=== PATIENT | female | born 1990 | race Caucasian/White ===

== ENCOUNTER 2017-11-12 17:12 | Emergency (ER) | payer SELFPAY ==
[~2017-11-12] VITALS: Ht 152.4 cm; Wt 70.0 kg
[2017-11-12 17:47] VITALS: TEMP 36.8; Ht 152.4 cm; Wt 70.0 kg
[2017-11-12] MEDS ORDERED: KETOROLAC TROMETHAMINE 30 MG/ML VIAL IV STA (18:54)
[2017-11-12] MEDS ORDERED: SODIUM CHLORIDE 0.9% 1000ML 1,000 ML IV STA (18:54)
[2017-11-12] MEDS ORDERED: ONDANSETRON INJ 2 MG/ML 2 ML VIAL IV STA (18:54)
[2017-11-12 19:30] LABS: BASO % 0.1 %; BASO ABS # 0.01 K/uL (0-0.2); EOS % 0.4 %; EOS ABS # 0.03 K/uL (0-0.5); HEMOGLOBIN 13.6 g/dL (12.0-16.0); IG# 0.02 K/uL (0.00-0.02); LYMPH ABS # 1.13 K/uL (1.2-3.4); MEAN CELL VOLUME 87.2 fL (80-100); MEAN CORPUSCULAR HEMOGLOBIN 30.4 pg (25-34); MEAN CORPUSCULAR HGB CONC 34.9 g/dl (32-36); MEAN PLATELET VOLUME 10.2 fL (7.4-10.4); MONO % 5.1 %; MONO ABS # 0.41 K/uL (0.11-0.59); NEUT % 80.2 %; NEUT ABS # 6.46 K/uL (1.4-6.5); PLATELET COUNT 224 K/uL (130-400); RED CELL DISTRIBUTION WIDTH CV 12.2 % (11.5-14.5); RED CELL DISTRIBUTION WIDTH SD 39.3 fL (36.4-46.3); WHITE BLOOD COUNT 8.06 K/uL (4.8-10.8)
[2017-11-12 19:48] LABS: ALBUMIN 3.7 gm/dl (3.4-5.0); CREATININE 0.6 mg/dl (0.60-1.20); POTASSIUM 3.9 mmol/L (3.5-5.1)
[2017-11-12 19:51] LABS: TOTAL PROTEIN 7.6 gm/dl (6.4-8.2)
--- NOTE | 2017-11-12 20:09 | EMERGENCY ROOM VISIT NOTE ---
History Report prepared by Darleneibnina: Nikki Frank Under the Supervision of: Dr. Indio Lopez M.D. First contact with patient: 18:48 Chief Complaint: VOMITING Stated Complaint: VOMITING, CAN'T EAT OR KEEP ANYTHING DOWN Nursing Triage Summary: vomiting for three days. unable to keep anything down. denies abdominal pain and had diarrhea for one day only History of Present Illness The patient is a 27 year old female who presents to the Emergency Room with complaints of constant vomiting starting 2 days ago. The patient states that she has not been able to keep anything that she eats or drinks down. She states that she has never had this issue before. The patient complains of mild abdominal cramping and an episode of diarrhea this morning. The patient denies any questionable food sources and any abdominal surgeries. She notes that she doesn't think that there is a chance that she is and states that her LNMP was a few weeks ago. Source of History: patient Onset: 2 days ago Position: other (global) Quality: other (vomiting) Timing: constant Associated Symptoms: + abdominal pain, + diarrhea Review of Systems See HPI for pertinent positives & negatives. A total of 10 systems reviewed and were otherwise negative. Past Medical & Surgical Medical Problems: (1) No pertinent past medical history Family History Patient reports no known family medical history. Social History Smoking Status: Current Every Day Smoker Alcohol Use: none Drug Use: none Marital Status: single Occupation Status: employed Current/Historical Medications Scheduled Doxylamine-Pyridoxine (Diclegis), 2 TAB PO HS Multivit (), 1 TAB PO DAILY Allergies Coded Allergies: No Known Allergies (Verified , NKA, 05/18/15) Physical Exam Vital Signs Date Time Temp Pulse Resp B/P (MAP) Pulse Ox O2 Delivery O2 Flow Rate FiO2 11/12/17 22:23 72 18 110/53 100 11/12/17 21:42 73 16 101/53 100 Room Air 11/12/17 21:42 72 18 101/53 98 Room Air 11/12/17 21:42 77 11/12/17 20:29 58 18 106/57 100 Room Air 11/12/17 19:11 64 18 104/61 100 Room Air 11/12/17 17:47 36.8 93 20 122/85 99 Room Air Physical Exam GENERAL: Awake, alert, well-appearing, in no acute distress HENT: Normocephalic, atraumatic. Oropharynx unremarkable. EYES: Normal conjunctiva. Sclera non-icteric. NECK: Supple. No nuchal rigidity. FROM. No JVD. RESPIRATORY: Clear to auscultation. CARDIAC: Regular rate, normal rhythm. Extremities warm and well perfused. Pulses equal. ABDOMEN: Soft, non-distended. No tenderness to palpation. No rebound or guarding. No masses. RECTAL: Deferred. MUSCULOSKELETAL: Chest examination reveals no tenderness. The back is symmetrical on inspection without obvious abnormality. There is no CVA tenderness to palpation. No joint edema. LOWER EXTREMITIES: Calves are equal size bilaterally and non-tender. No edema. No discoloration. NEURO: Normal sensorium. No sensory or motor deficits noted. SKIN: No rash or jaundice noted. Medical Decision & Procedures ER Provider Diagnostic Interpretation: Radiology results as stated below per my review and radiologist interpretation: <14 WKS SINGLE (transabdominal and endovaginal scanning CLINICAL HISTORY: , nausea and vomiting. COMPARISON STUDY: No previous studies for comparison. FINDINGS: A single alive intrauterine gestation is visualized. The crown-rump length measures 21 mm corresponding to an estimated postmenstrual age of 8 weeks and 5 days. Cardiac activity was visualized. A 3 mm yolk sac was delineated. The right ovary measured 20 x 14 x 24 mm. The left ovary measured 39 x 22 x 26 mm. There is a 26 mm heterogeneous focus within the left ovary, likely representing a corpus luteal cyst. IMPRESSION: Single alive intrauterine gestation. The estimated postmenstrual age is 8 weeks and 5 days Electronically signed by: Ramin Brannon M.D. 11/12/2017 9:57 PM Dictated Date/Time: 11/12/2017 9:55 PM Laboratory Results 11/12/17 19:10 Red Blood Count 4.47, Mean Corpuscular Volume 87.2, Mean Corpuscular Hemoglobin 30.4, Mean Corpuscular Hemoglobin Concent 34.9, Mean Platelet Volume 10.2, Neutrophils (%) (Auto) 80.2, Lymphocytes (%) (Auto) 14.0, Monocytes (%) (Auto) 5.1, Eosinophils (%) (Auto) 0.4, Basophils (%) (Auto) 0.1, Neutrophils # (Auto) 6.46, Lymphocytes # (Auto) 1.13, Monocytes # (Auto) 0.41, Eosinophils # (Auto) 0.03, Basophils # (Auto) 0.01 11/12/17 19:10 Test 11/12/17 19:10 11/12/17 19:56 White Blood Count 8.06 K/uL (4.8-10.8) Red Blood Count 4.47 M/uL (4.2-5.4) Hemoglobin 13.6 g/dL (12.0-16.0) Hematocrit 39.0 % (37-47) Mean Corpuscular Volume 87.2 fL (80-100) Mean Corpuscular Hemoglobin 30.4 pg (25-34) Mean Corpuscular Hemoglobin Concent 34.9 g/dl (32-36) Platelet Count 224 K/uL (130-400) Mean Platelet Volume 10.2 fL (7.4-10.4) Neutrophils (%) (Auto) 80.2 % Lymphocytes (%) (Auto) 14.0 % Monocytes (%) (Auto) 5.1 % Eosinophils (%) (Auto) 0.4 % Basophils (%) (Auto) 0.1 % Neutrophils # (Auto) 6.46 K/uL (1.4-6.5) Lymphocytes # (Auto) 1.13 K/uL (1.2-3.4) Monocytes # (Auto) 0.41 K/uL (0.11-0.59) Eosinophils # (Auto) 0.03 K/uL (0-0.5) Basophils # (Auto) 0.01 K/uL (0-0.2) RDW Standard Deviation 39.3 fL (36.4-46.3) RDW Coefficient of Variation 12.2 % (11.5-14.5) Immature Granulocyte % (Auto) 0.2 % Immature Granulocyte # (Auto) 0.02 K/uL (0.00-0.02) Anion Gap 5.0 mmol/L (3-11) Est Creatinine Clear Calc Drug Dose 123.0 ml/min Estimated GFR () 144.8 Estimated GFR (Non- 124.9 BUN/Creatinine Ratio 12.1 (10-20) Calcium Level 9.0 mg/dl (8.5-10.1) Total Bilirubin 0.3 mg/dl (0.2-1) Direct Bilirubin 0.1 mg/dl (0-0.2) Aspartate Amino Transf (AST/SGOT) 14 U/L (15-37) Alanine Aminotransferase (ALT/SGPT) 21 U/L (12-78) Alkaline Phosphatase 62 U/L (45-117) Total Protein 7.6 gm/dl (6.4-8.2) Albumin 3.7 gm/dl (3.4-5.0) Lipase 91 U/L (73-393) Human Chorionic Gonadotropin, Qual POS (NEG) Human Chorionic Gonadotropin, Quant 34208 mIU/mL Urine Color DK YELLOW Urine Appearance TURBID (CLEAR) Urine pH 5.0 (4.5-7.5) Urine Specific [place] 1.029 (1.000-1.030) Urine Protein 1+ (NEG) Urine Glucose (UA) NEG (NEG) Urine Ketones 2+ (NEG) Urine Occult Blood 1+ (NEG) Urine Nitrite POS (NEG) Urine Bilirubin NEG (NEG) Urine Urobilinogen NEG (NEG) Urine Leukocyte Esterase MODERATE (NEG) Urine WBC (Auto) >30 /hpf (0-5) Urine RBC (Auto) 5-10 /hpf (0-4) Urine Hyaline Casts (Auto) 0 /lpf (0-5) Urine Epithelial Cells (Auto) >30 /lpf (0-5) Urine Bacteria (Auto) 4+ (NEG) Urine Pathogenic Casts /lpf (0) Urine Mucus PRESENT (NONE PRSENT) Urine Test POS (NEG) Labs reviewed by ED physician. Medications Administered Medications (Trade) Dose Ordered Sig/Te Route Start Time Stop Time Status Last Admin Dose Admin Sodium Chloride 1,000 ml @ 999 mls/hr Q1H1M STAT IV 11/12/17 18:54 11/12/17 19:54 DC 11/12/17 19:07 999 MLS/HR Ondansetron HCl (Zofran Inj) 4 mg NOW STAT IV 11/12/17 18:54 11/12/17 18:55 DC 11/12/17 19:08 4 MG Ketorolac Tromethamine (Toradol Inj) 30 mg NOW STAT IV 11/12/17 18:54 18 18:55 DC 11/12/17 19:08 30 MG ED Course 1851: Past medical records reviewed. The patient was evaluated in room A3. A complete history and physical examination was performed. 1854: Ordered Toradol Inj 30 mg IV, Zofran Inj 4 mg IV, NSS 1000 ml @ 999 mls/ hr IV. 2000: I reevaluated the patient and updated her on her test results thus far. 2201: Upon reexamination the patient is resting comfortably. I discussed results and treatment plan with the patient. She verbalizes agreement and understanding. The patient is ready for discharge. Medical Decision Differential diagnosis: Etiologies such as gastroenteritis, food borne illness, infections, appendicitis , diverticulitis, inflammatory bowel disease, obstruction, GI bleed, biliary pathology, as well as others were entertained. This is a 27-year-old female who presents the emergency department complaining of nausea and vomiting. The patient does not believe she is . She was given normal saline bolus Zofran and Toradol. after some time she was able to produce a urine sample which was concerning for . At this point this was confirmed with a serum test and a beta hCG quant level was obtained. This was found to be 6000. The patient was sent for an ultrasound which showed an 8 week gestation. 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 she was also given diclegis prior to discharge the patient was able to tolerate p.o. fluids. And I feel can be safely discharged home for follow-up with her EDUCATION NURSE. I also contacted case management to speak with the patient to give her all her options. Medication Reconcilliation Current Medication List: was personally reviewed by me Blood Pressure Screening Patient's blood pressure: Normal blood pressure Blood pressure disposition: Did not require urgent referral Impression Primary Impression: Additional Impression: Vomiting Scribe Attestation The scribe's documentation has been prepared under my direction and personally reviewed by me in its entirety. I confirm that the note above accurately reflects all work, treatment, procedures, and medical decision making performed by me. Departure Information Dispostion Home / Self-Care Prescriptions Multivit () 1 Tab Tab 1 TAB PO DAILY for 90 Days, #90 TAB 3 Refills Prov: Indio Lopez MD 11/12/17 Doxylamine-Pyridoxine (DICLEGIS) 1 Tab Tab 2 TAB PO HS, #10 TAB Prov: Indio Lopez MD 4/24/18 Referrals No Doctor, Assigned (PCP) Forms HOME CARE DOCUMENTATION FORM, IMPORTANT VISIT INFORMATION Patient Instructions My [facility] Additional Instructions Follow up with Dr Sidhu's office You have been examined and treated today on an emergency basis only. This is not a substitute for, or an effort to provide, complete comprehensive medical care. It is impossible to recognize and treat all injuries or illnesses in a single emergency department visit. It is therefore important that you follow up closely with your PCP. Call as soon as possible for an appointment. Thank you for your time and consideration. I look forward to speaking with you again soon. Please don't hesitate to call us if you have any questions. Problem Qualifiers Primary Impression: Weeks of gestation: 8 weeks Qualified Codes: Z3A.08 - 8 weeks gestation of Additional Impression: Vomiting Vomiting type: unspecified Vomiting Intractability: unspecified Nausea presence: unspecified Qualified Codes: R11.10 - Vomiting, unspecified
--- NOTE | 2017-11-12 21:58 | DIAGNOSTIC IMAGING REPORT ---
<14 WKS SINGLE (transabdominal and endovaginal scanning CLINICAL HISTORY: , nausea and vomiting. COMPARISON STUDY: No previous studies for comparison. FINDINGS: A single alive intrauterine gestation is visualized. The crown-rump length measures 21 mm corresponding to an estimated postmenstrual age of 8 weeks and 5 days. Cardiac activity was visualized. A 3 mm yolk sac was delineated. The right ovary measured 20 x 14 x 24 mm. The left ovary measured 39 x 22 x 26 mm. There is a 26 mm heterogeneous focus within the left ovary, likely representing a corpus luteal cyst. IMPRESSION: Single alive intrauterine gestation. The estimated postmenstrual age is 8 weeks and 5 days Electronically signed by: Ramin Brannon M.D. 11/12/2017 9:57 PM Dictated Date/Time: 11/12/2017 9:55 PM
[2017-11-12] MEDS ORDERED: DOXY30TA PO (22:08)
[2017-11-12] MEDS ORDERED: PRENTAB65 PO (22:12)
[2017-11-12 22:23] VITALS: BP 110/53; PULSE 72; O2SAT 100
== END 2017-11-12 22:17 | disposition home or self-care (01) ==
LOC: C.EDB 17:13 → C.EDA 22:17
DX: O21.9 Vomiting of pregnancy, unspecified (principal); F17.210 Nicotine dependence, cigarettes, uncomplicated

== ENCOUNTER → 2018-02-13 | Outpatient (CLI) | payer OTHER ==
[~2018-02-13] MED LIST: DOXY30TA PO; PRENTAB65 PO
== END | disposition home or self-care (01) ==
LOC: C.PAPS 13:49
PROVIDERS: ATTEND Obstetrics & Gynecology
DX: Z34.02 Encounter for supervision of normal first pregnancy, second trimester (principal)

== ENCOUNTER → 2018-03-13 | Outpatient (CLI) | payer OTHER | END | disposition home or self-care (01) | LOC: C.LAB1850 15:54 | PROVIDERS: ATTEND Obstetrics & Gynecology | DX: P83.2 Hydrops fetalis not due to hemolytic disease (principal) ==